=== PATIENT | female | born 1995 | race Two or more races ===

== ENCOUNTER 2024-05-15 00:42 | Emergency (ER) | payer MEDICAID, SELFPAY ==
[2024-05-15 00:43] VITALS: BMI 30.2
[2024-05-15 01:04] VITALS: BP 117/78; PULSE 79; RESP 16; TEMP 37.1; O2SAT 99
--- NOTE | 2024-05-15 01:19 | PD.EDRME ---
Rapid Medical Screening Exam RME Arrival date/time: 05/15/24 00:42 28-year-old female reports with complaints of pelvic pressure pain x 3 days Chief Complaint: Abdominal Pain Time Seen by Provider: 05/15/24 00:49 Vital signs: Vital Signs Temperature 98.8 F 05/15/24 01:04 Pulse Rate 79 05/15/24 01:04 Respiratory Rate 16 05/15/24 01:04 Blood Pressure 117/78 05/15/24 01:04 Pulse Oximetry (%) 99 05/15/24 01:04 Oxygen Delivery Method Room Air 05/15/24 01:04
[2024-05-15 01:46] LABS: Collection Type, Urine Clean Catch
[2024-05-15 01:55] LABS: Bacteria,Urine Rare; Bilirubin,Urine Negative (Negative); Blood,Urine Negative (Negative); Clarity,Urine Clear (Clear/Hazy); Color,Urine Lt-Yellow (Lt Yel-Yel); Culture Indicated,Urine Not Indicated; Glucose, Urine Negative (Negative); HCG Qualitative,Urine Positive; Ketones,Urine Negative (Negative); Leukocyte Esterase,Urine Positive (Negative); Nitrite,Urine Negative (Negative); PH,Urine 6.5 (5.0-7.0); Protein,Urine Trace (Neg - Trace); RBC,Urine 2 /hpf (0-3); Specific Gravity,Urine 1.028 (1.001-1.035); Squamous Epithelial Cell,Urine 13 /hpf (0-5); Urobilinogen,Urine Negative mg/dL (0.0-1.0); WBC,Urine 1 /hpf (0-5)
--- NOTE | 2024-05-15 02:01 | XR_ITS ---
Examination: OB Transvaginal ultrasound of the pelvis, complete Technique: Transvaginal sonographic images pelvis performed using vega scale imaging Exam date and time: May 15, 2024 0029 hrs. Indications: Pelvic pain beginning 3 days ago, history ectopic 2020 Findings: Uterus 8.0 x 4.5 x 6.5 cm pole 0.3 cm corresponds to 5 week 6 day gestational age Cardiac motion 83 BPM Right ovary 4.1 x 3.1 x 2.8 cm arterial flow 28 mm cyst Left ovary removed 2020 Impression: Intrauterine gestation corresponding to 5 week 6 day gestational age Cardiac motion 83 BPM, recommend short-term follow-up transvaginal pelvic sonography to document normal cardiac rate.
[2024-05-15 02:28] LABS: Basophils # (Auto) 0.1 Thou/mm3 (0.0-0.2); Basophils % (Auto) 1 % (0-2.5); Eosinophils # (Auto) 0.1 Thou/mm3 (0.0-0.5); Eosinophils % (Auto) 1 % (0-10); Hematocrit 32.9 % (36.0-46.0); Hemoglobin 9.9 g/dL (12.0-16.0); Immature Granulocytes % (Auto) 0 % (0-0); Immature Granulocytes Auto 0.02 Thou/mm3 (0.00-0.00); Lymphocytes # (Auto) 2.1 Thou/mm3 (1.0-4.8); Lymphocytes % (Auto) 22 % (10-50); Mean Corpuscular HGB Conc 30.1 g/dl (31.0-37.0); Mean Corpuscular Hemoglobin 22.6 pg (25.0-35.0); Mean Corpuscular Volume 75 fL (80-100); Monocytes # (Auto) 0.6 Thou/mm3 (0.0-0.8); Monocytes % (Auto) 6 % (0-12); Neutrophils # (Auto) 6.8 Thou/mm3 (1.8-7.7); Neutrophils % (Auto) 70 % (37-80); Nucleated Red Blood Cell % 0 /100 WBC (0); Platelet Count 345 Thou/mm3 (140-440); RDW Standard Deviation 45.7 fL (36.4-46.3); Red Blood Count 4.39 Miln/mm3 (4.00-5.20); White Blood Count 9.7 Thou/mm3 (3.6-11.0)
[2024-05-15 03:20] LABS: Beta HCG,Quantitative 38257 mIU/mL (<5.0)
--- NOTE | 2024-05-15 04:00 | PRELIM_ITS ---
Obstetric ultrasound (transvaginal) with doppler and wave doppler spectral analysis. May 15 24 at 0229 hours Clinical history: Abdominal pain nausea/vomiting for 3 days.Technique: Real-time ul trasound was performed using Duplex scanning including arterial inflow, venous outflow, color and spe ctral Doppler analysis of both ovaries.Comparison: No prior study is available for comparison. Findin gs:There is an intrauterine gestation with a single live fetus of mean gestational age 5 weeks and 6 days (CRL= 0.3 cm). cardiac activity is present at heart rate of 83 beats per minute. The yolk sac measures 0.3 cm.The uterus measures 8.0 x 4.5 x 6.5 cm.The right ovary measures 4.1 x 3.1 x 2.8 cm, right ovarian simple cystic lesion measures 4.1 x 3.1 x 2.8 cm. Normal blood flow in the right ov ponce with normal wave Doppler spectral analysis.The left ovary was not visualized.There is no free flu id in the pelvis.Impression:Intrauterine gestation with a single live fetus of mean gestational age 5 weeks and 6 days. Report Electronically Signed By: Carter Remy 05/15/2024 3:59:43 AM [EST]
--- NOTE | 2024-05-15 04:43 | PD.EDABDPN ---
ED Abdominal Pain RME/HPI General Chief Complaint: Abdominal Pain Stated complaint: ABD PAIN/ N/V X 3DAYS Time seen by provider: 05/15/24 00:49 Arrival date/time: 05/15/24 00:42 Limitations: no limitations RME / HPI RME / HPI narrative: 05/15/24 00:42 28-year-old female reports with complaints of pelvic pressure pain x 3 days ----- Dr. Contreras's Main ED Evaluation: Related Data Home Medications ?Medication ?Instructions ?Recorded ?Confirmed No Known Home Medications 01/02/21 01/02/21 Allergies Allergy/AdvReac Type Severity Reaction Status Date / Time codeine AdvReac Nausea Verified 07/12/23 02:41 Review of Systems Review of Systems Systems Reviewed: All systems reviewed, normal except as documented ED Exam General Limitations: Present no limitations General appearance: Present alert and in no apparent distress Head Head exam: Present atraumatic Eye Eye exam: Present normal appearance, PERRL and EOMI ENT ENT exam: Present normal exam, normal oropharynx and mucous membranes moist Neck Neck exam: Present normal inspection, full ROM and trachea midline Chest Chest inspection: Present normal inspection and symmetric chest wall rise Respiratory Respiratory exam: Present normal lung sounds bilaterally Cardiovascular Cardiovascular exam: Present regular rate, normal rhythm and normal heart sounds Abdominal Exam Abdominal exam: Present soft and normal bowel sounds Extremities Exam Extremities exam: Present normal inspection and full ROM Back Exam Back exam: Present normal inspection and full ROM Neurological Exam Neurological exam: Present alert, oriented X3 and CN II-XII intact Psychiatric Psychiatric exam: Present normal affect and normal mood Skin Skin exam: Present warm, dry, intact and normal color Course Quality Measures none Orders Category Date Time Status US OB transvaginal Stat Exams 05/15/24 02:01 Taken ABO/RH Type Stat Lab 05/15/24 02:05 Completed Beta HCG,Quantitative Stat Lab 05/15/24 02:05 Completed CBC Stat Lab 05/15/24 02:05 Completed HCG Qualitative,Urine Stat Lab 05/15/24 01:40 Completed UA, C/S IF [Urinalysis, C/S if Indicated] Stat Lab 05/15/24 01:40 Completed Vital Signs Vital signs: Vital Signs Temperature 98.8 F 05/15/24 01:04 Pulse Rate 79 05/15/24 01:04 Respiratory Rate 16 05/15/24 01:04 Blood Pressure 117/78 05/15/24 01:04 Pulse Oximetry (%) 99 05/15/24 01:04 Oxygen Delivery Method Room Air 05/15/24 01:04 Pulse ox is 99% on room air, which is normal according to my interpretation. Abdominal Pain MDM Patient data External records reviewed:: [facility] previous records (Per chart review, patient was seen here on 03/24/20 for pelvic pain.) Discharge Plan Prescriptions/Referrals Prescriptions/Med Rec: No Action No Known Home Medications Referrals: Temporary Provider,ED [Primary Care Provider] - In 1 week Patient/Caregiver Discharge Instructions Print Language: Haitian
--- NOTE | 2024-05-15 05:06 | EDNOTE_ITS ---
ED OB Contraction Preg RMI/HPI General Chief complaint: Abdominal Pain Stated complaint: ABD PAIN/ N/V X 3DAYS Time Seen by Provider: 05/15/24 00:49 Arrival date/time: 05/15/24 00:42 28 year old female present to emergency room with c/o of abd pain, nausea and vomiting for 3 days. LOCATION: pelvic region SEVERITY: Symptoms are described as being severe with limitations on activities of daily living QUALITY: Symptoms are described as being cramping CONTEXT: The patient is unable to identify any inciting events DURATION/TIMING: The symptoms started approximately 3 day ago and have been waxing/waning but always present without ever completely resolving. ASSOCIATED SYMPTOMS: The patient is unable to identify any other associated symptoms. MODIFYING FACTORS: The patient is unable to identify any alleviating or aggravating symptoms. PERTINENT ROS: no fevers, no anorexia, no diarrhea, no ripping or tearing sensations, no syncope or presyncopal symptoms, denies trauma, denies genital pain REVIEW OF SYSTEMS: See History of Present Illness - with the exception of those mentioned in the history of present illness, all other systems reviewed and reported as negative GENERAL: In general the patient is awake, interactive, in an emergency department gurney. HEAD/EYES/EARS/NOSE/THROAT: normo-cephalic, atraumatic, mucus membranes are moist, anicteric, palpebral conjunctiva is pink, trachea is midline. CARDIOVASCULAR: regular rate and regular rhythm, no murmurs, heart sounds are not distant, strong pulses in all four extremities that are equal and symmetric bilateral upper and lower extremities, normal capillary refill. CHEST/PULMONARY: normal chest rise and fall, good air movement, clear to auscultation bilaterally, normal inspiratory to expiratory ratios without evidence of respiratory distress. NECK: No midline/Paraspinal tenderness, no step off ROM/Strenght intact No Kernig and bruzinski sign. No trauma ABDOMEN: soft, not tender, no masses appreciated BACK: normal range of motion without pain. NEUROLOGICAL: cranio-facial features are symmetric, moves all four extremities equally without obvious limitations or weakness. EXTREMITY: no tenderness to palpation over the long bones or large joints of the bilateral upper and lower extremities, no joint swelling, no joint erythema, no signs of trauma, no unilateral leg swelling and no peripheral edema. SKIN: warm, dry, well-perfused, no jaundice, no rash, no telangiectasias or petechia. PSYCH: calm, cooperative, no evidence of psychosis or agitation Limitations: no limitations RME / HPI RME / HPI Narrative: 05/15/24 00:42 28-year-old female reports with complaints of pelvic pressure pain x 3 days ----- Dr. Contreras's Main ED Evaluation: Related Data Home Medications ?Medication ?Instructions ?Recorded ?Confirmed No Known Home Medications 01/02/21 01/02/21 Allergies Allergy/AdvReac Type Severity Reaction Status Date / Time codeine AdvReac Nausea Verified 07/12/23 02:41 ED Exam General Limitations: Present no limitations General appearance: Present alert and in no apparent distress Course Course Course Narrative: This patient presents with abd pain for 3 days, DDX includes ectopic, IUP, threatened/inevitable , along with completed . UTI, gastroenteritis, Patient is HDS and without a history of coagulopathy or infectious symptoms. Doubt alternate acute emergent pathology. Plan: CG, +/- basic labs, type and screen, TVUS, reassess Quality Measures none Orders Category Date Time Status US OB transvaginal Stat Exams 05/15/24 02:01 Taken ABO/RH Type Stat Lab 05/15/24 02:05 Completed Beta HCG,Quantitative Stat Lab 05/15/24 02:05 Completed CBC Stat Lab 05/15/24 02:05 Completed HCG Qualitative,Urine Stat Lab 05/15/24 01:40 Completed UA, C/S IF [Urinalysis, C/S if Indicated] Stat Lab 05/15/24 01:40 Completed Reevaluation(s) Reevaluation #1: pt is feeling better Vital Signs Vital signs: Vital Signs Temperature 98.8 F 05/15/24 01:04 Pulse Rate 79 05/15/24 01:04 Respiratory Rate 16 05/15/24 01:04 Blood Pressure 117/78 05/15/24 01:04 Pulse Oximetry (%) 99 05/15/24 01:04 Oxygen Delivery Method Room Air 05/15/24 01:04 OB/Uterine Contractions Patient data External records reviewed:: [facility] previous records Clinical information provided by:: patient Social determinants that could affect healthcare access:: none Patient has the following chronic illnesses:: anemia How is presenting disease/condition affected by chronic disease/condition?: uneffected by Evaluation data The following diagnostics were reviewed and interpreted by me:: lab results and radiology exam(s) Lab and/or radiology exams considered but not ordered:: none Interpretation Summary: us : 5 week 84 hr hck urine no infection cbc: + anemia consisted from previous visits cmp no acute findings Medications / Prescriptions Medications or Prescriptions considered but not ordered:: none Medication administrations:: none Consultations Consultation(s) initiated? (list below): No Diagnosis OB Contractions Differential Diagnosis: other (as stated above in course ) Most likely diagnosis given after review of the tests above:: 1st trimster Admission Indicated Explain why admission is indicated or not indicated:: note indicated Admission Request Was there a request for admission?: No Disposition Plan Disposition Plan: Discharge Discharge Attestation Discharge Attestation: The patient and all family members were given an opportunity to ask questions and understood the discharge instructions. Discharge instructions specifically effects, indications for sooner follow up or return to the emergency department, and the expected course of current diagnosis. Patient condition: Stable Discharge Plan Plan Patient Disposition: HOME (Self Care) Health Concerns: schedule an appointment with OB return to ED if symptoms worsen Prescriptions/Referrals Prescriptions/Med Rec: No Action No Known Home Medications Referrals: Temporary Provider,ED [Primary Care Provider] - In 1 week Problem List Clinical Impression: Patient/Caregiver Discharge Instructions Education Materials: First Trimester Print Language: Mauritanian Stand Alone Forms: [employer] Award Info., Patient Portal Info Letter
[2024-05-15 05:26] VITALS: BP 112/81; PULSE 82; RESP 18; TEMP 36.8; O2SAT 100
== END 2024-05-15 05:27 | disposition home or self-care (01) ==
LOC: SERX 06:14
PROVIDERS: Physician Assistant; Emergency Provider Emergency Medicine; PCP Family Medicine
DX: O26.891 Other specified pregnancy related conditions, first trimester (principal); R10.9 Unspecified abdominal pain
CPT/HCPCS: 36415; 76817; 81001; 81025; 84702; 85025; 86900; 86901; 99284

== ENCOUNTER 2025-02-16 20:29 | Emergency (ER) | payer MEDICAID, SELFPAY ==
[2025-02-16 20:30] VITALS: BMI 29.8
[2025-02-16 20:53] VITALS: BP 109/74; PULSE 103; RESP 18; TEMP 37.4; O2SAT 99
--- NOTE | 2025-02-16 21:08 | XR_ITS ---
Examination: CT abdomen and pelvis without contrast. Coronal 3-D reconstructions. Sagittal 2-D reconstructions. Date and time of exam:February 16, 2025, 10:40 PM Indications: Pelvic abdominal pain beginning 2 weeks ago Comparison: January 14, 2017 CTDI: vol (mGy): 7.97 DLP: (mGycm): 435 Technique: Axial images of the abdomen have been obtained, 3 mm slice thickness Intravenous contrast material has not been administered. Low dose protocols were performed. One or more of the following dose reduction techniques were used; automated exposure control, adjustment of the mA and/or KV according to patient size, use of iterative reconstruction technique. Findings: No focal liver or splenic lesions No gallstones No pancreatic or adrenal mass Hyperdense renal pyramids, no hydronephrosis or ureteral calculi Aorta normal size No bowel obstruction Normal appendix No diverticulitis Retroverted uterus No adnexal mass The osseous structures are intact Impression: Nephrocalcinosis, no hydronephrosis or ureteral calculi Normal appendix No bowel obstruction diverticulitis or free air Given the patient's presentation, recommend pelvic sonography follow-up
[2025-02-16 21:34] LABS: Basophils # (Auto) 0.0 Thou/mm3 (0.0-0.2); Basophils % (Auto) 0 % (0-2.5); Eosinophils # (Auto) 0.0 Thou/mm3 (0.0-0.5); Eosinophils % (Auto) 0 % (0-10); Hematocrit 32.4 % (36.0-46.0); Hemoglobin 9.3 g/dL (12.0-16.0); Immature Granulocytes Auto 0.03 Thou/mm3 (0.00-0.00); Lymphocytes # (Auto) 1.1 Thou/mm3 (1.0-4.8); Lymphocytes % (Auto) 11 % (10-50); Mean Corpuscular HGB Conc 28.7 g/dl (31.0-37.0); Mean Corpuscular Hemoglobin 20.4 pg (25.0-35.0); Mean Corpuscular Volume 71 fL (80-100); Monocytes # (Auto) 0.5 Thou/mm3 (0.0-0.8); Monocytes % (Auto) 5 % (0-12); Neutrophils # (Auto) 7.7 Thou/mm3 (1.8-7.7); Neutrophils % (Auto) 83 % (37-80); Nucleated Red Blood Cell # 0.00 Thou/mm3 (0.00-0.00); Nucleated Red Blood Cell % 0 /100 WBC (0); Platelet Count 369 Thou/mm3 (140-440); RDW Standard Deviation 42.7 fL (36.4-46.3); Red Blood Count 4.57 Miln/mm3 (4.00-5.20); White Blood Count 9.4 Thou/mm3 (3.6-11.0)
[2025-02-16] MEDS: ONDANSETRON ODT 4 MG TABRAP PO (21:34)
[2025-02-16] MEDS: KETOROLAC INJ 60 MG/2 ML VIAL 30 MG IM (21:34)
[2025-02-16 21:53] LABS: Alanine Aminotransferase 12 U/L (10-49); Albumin, Serum 5.2 gm/dL (3.5-5.0); Albumin/Globulin Ratio 1.6 (1.2-2.2); Alkaline Phosphatase 87 U/L (46-116); Amylase 58 U/L (30-118); Anion Gap 9 (7-16); Aspartate Amino Transferase 19 U/L (0-34); BUN/Creatinine Ratio 13 Ratio (12-20); Bilirubin,Total 1.0 mg/dL (0.3-1.2); Blood Urea Nitrogen 8 mg/dL (9-23); Calcium 9.8 mg/dL (8.3-10.6); Calcium (Corrected) 9.8 mg/dL (8.5-10.1); Carbon Dioxide 26.8 mMol/L (20.0-31.0); Chloride 103 mMol/L (98-107); Creatinine (Component) 0.6 mg/dL (0.6-1.3); Estimated Creatinine Clearance 105.3 mL/min (>60); Globulin 3.3 gm/dL (2.3-3.5); Glucose 108 mg/dL (74-106); Osmolality,Calculated 276 (275-295); Potassium 3.9 mMol/L (3.4-5.1); Sodium 139 mMol/L (136-145); Total Protein 8.5 gm/dL (5.7-8.2); eGFR > 60 See Note
[2025-02-16 22:00] LABS: Collection Type, Urine Clean Catch
[2025-02-16 22:10] LABS: HCG Qualitative,Urine Negative
[2025-02-16 22:12] LABS: Bacteria,Urine Rare; Bilirubin,Urine Negative (Negative); Blood,Urine Negative (Negative); Clarity,Urine Clear (Clear/Hazy); Color,Urine Lt-Yellow (Lt Yel-Yel); Glucose, Urine Negative (Negative); Ketones,Urine Negative (Negative); Leukocyte Esterase,Urine Positive (Negative); Nitrite,Urine Negative (Negative); PH,Urine 7.0 (5.0-7.0); Protein,Urine Negative (Neg - Trace); RBC,Urine 2 /hpf (0-3); Specific Gravity,Urine 1.018 (1.001-1.035); Squamous Epithelial Cell,Urine 5 /hpf (0-5); Urobilinogen,Urine Negative mg/dL (0.0-1.0); WBC,Urine 1 /hpf (0-5)
--- NOTE | 2025-02-16 23:32 | PD.EDABDPN ---
ED Abdominal Pain RME/HPI General Chief Complaint: Abdominal Pain Stated complaint: ABD PAIN Time seen by provider: 02/16/25 20:49 Arrival date/time: 02/16/25 20:29 This is a case of 29-year-old female with no medical history came in in the emergency room due to abdominal pain on and off cramping in character associated with nausea vomiting for 3 days persistence of the symptoms this patient decided to sought consult here in the emergency room Limitations: no limitations Related Data Previous Rx's ?Medication ?Instructions ?Recorded metoclopramide HCl 10 mg tablet 10 mg PO Q6H PRN nausea and 05/15/24 (Reglan) vomiting #30 tabs dicyclomine 20 mg tablet 20 mg PO TID #14 tabs 02/16/25 ferrous sulfate 325 mg (65 mg 325 mg PO BID #60 tabs 02/16/25 iron) tablet nitrofurantoin 100 mg PO BID #20 caps 02/16/25 monohydrate/macrocrystals 100 mg capsule (Macrobid) ondansetron 4 mg disintegrating 4 mg PO Q8H PRN nausea and 02/16/25 tablet vomiting #20 tabs phenazopyridine 200 mg tablet 200 mg PO TID 6 doses #6 tabs 02/16/25 (Pyridium) Allergies Allergy/AdvReac Type Severity Reaction Status Date / Time codeine AdvReac Nausea Verified 02/16/25 20:30 Review of Systems Review of Systems Systems Reviewed: All systems reviewed, normal except as documented Constitutional Constitutional: Reports system reviewed and no additional complaints, except as documented and Reports as per HPI ENT Ears, Nose, Mouth, and Throat: Denies dysphagia and Denies odynophagia Cardiovascular Cardiovascular: Reports system reviewed and no additional complaints, except as documented and Reports as per HPI Respiratory Respiratory: Reports system reviewed and no additional complaints, except as documented and Reports as per HPI Gastrointestinal Gastrointestinal: Reports system reviewed and no additional complaints, except as documented, Reports as per HPI, Reports abdominal pain, Denies belching, Denies bloating, Denies change in bowel habits, Denies change in stool character, Denies coffee ground emesis, Denies constipation, Denies cramping, Denies diarrhea, Denies dyspepsia, Denies dysphagia, Denies early satiety, Denies excessive flatus, Denies fecal incontinence, Denies heartburn, Denies hematemesis, Denies hematochezia, Denies loose stools, Denies melena, Reports nausea, Denies odynophagia, Denies tenesmus and Reports vomiting Genitourinary Genitourinary: Reports system reviewed and no additional complaints, except as documented, Reports as per HPI and Reports dysuria Musculoskeletal Musculoskeletal: Reports system reviewed and no additional complaints, except as documented and Reports as per HPI Neurologic Neurologic: Reports system reviewed and no additional complaints, except as documented and Reports as per HPI Past Medical History Past Medical History NEUROLOGIC: Negative Seizures CARDIAC: Negative Congestive Heart Failure RESPIRATORY: Negative Chronic Obstructive Pulmonary Disease (COPD) GENITOURINARY: Negative Renal Disease REPRODUCTIVE: Positive Previous Pregnancies ENDOCRINE: Negative Diabetes Mellitus Type 1 or Diabetes Mellitus Type 2 OTHER HISTORY: Negative Blood Transfusions, Blood Transfusion Reaction or Anesthesia Reactions Surgical History SURGICAL: Positive Section (X3) Social History SMOKING STATUS: Never smoker ED Exam General Limitations: Present no limitations General appearance: Present alert, in no apparent distress and other (Patient is awake alert oriented not in distress nontoxic looking well-hydrated well-nourished) Head Head exam: Present atraumatic, normocephalic and normal inspection Eye Eye exam: Present normal appearance, PERRL and EOMI ENT ENT exam: Present normal exam, normal oropharynx and mucous membranes moist; Absent mucous membranes dry Neck Neck exam: Present normal inspection, full ROM and trachea midline; Absent tenderness, meningismus, lymphadenopathy or thyromegaly Chest Chest inspection: Present normal inspection and symmetric chest wall rise; Absent tenderness Respiratory Respiratory exam: Present normal lung sounds bilaterally; Absent respiratory distress, wheezes, stridor, accessory muscle use or prolonged expiratory phase Cardiovascular Cardiovascular exam: Present regular rate, normal rhythm and normal heart sounds; Absent bradycardia, tachycardia, irregular rhythm, systolic murmur or diastolic murmur Abdominal Exam Abdominal exam: Present soft, tenderness (Mild tenderness periumbilical area no guarding no rebound no rigidity negative psoas negative straight or negative Rovsing's negative Naveed's negative Callaway sign negative CVA tenderness no bladder distention or tenderness) and normal bowel sounds; Absent distention, diminished bowel sounds, hyperactive bowel sounds, hypoactive bowel sounds or organomegaly Extremities Exam Extremities exam: Present normal inspection and full ROM Back Exam Back exam: Present normal inspection and full ROM; Absent tenderness, CVA tenderness (R), CVA tenderness (L), muscle spasm, paraspinal tenderness, vertebral tenderness, sciatic notch tenderness (R), sciatic notch tenderness (L), straight leg raise (R) or straight leg raise (L) Neurological Exam Neurological exam: Present alert, oriented X3, CN II-XII intact, normal gait and reflexes normal; Absent motor sensory deficit Psychiatric Psychiatric exam: Present normal affect and normal mood Skin Skin exam: Present warm, dry, intact, normal color and other (Excellent skin turgor) Course Quality Measures none Orders Category Date Time Status CT abdomen pelvis wo con Stat Exams 02/16/25 21:08 Completed Amylase Stat Lab 02/16/25 21:20 Completed CBC Stat Lab 02/16/25 21:20 Completed Comprehensive Metabolic Panel Stat Lab 02/16/25 21:20 Completed HCG Qualitative,Urine Stat Lab 02/16/25 21:46 Completed Urinalysis Stat Lab 02/16/25 21:46 Completed Ketorolac Inj [Toradol Inj] Med 02/16/25 21:08 Discontinued 30 mg IM X1 ONE Ondansetron Odt [Zofran Odt] Med 02/16/25 21:08 Discontinued 4 mg PO X1 ONE Phenazopyridine HCl [Pyridium] Med 02/16/25 23:37 Once 200 mg PO X1 ONE Vital Signs Vital signs: Vital Signs Temperature 99.3 F 02/16/25 20:53 Pulse Rate 103 H 02/16/25 20:53 Respiratory Rate 18 02/16/25 20:53 Blood Pressure 109/74 02/16/25 20:53 Pulse Oximetry (%) 99 02/16/25 20:53 Oxygen Delivery Method Room Air 02/16/25 20:53 Oxygen saturation is 99% in room air normal Abdominal Pain MDM MDM Narrative MDM Narrative:: This is a case of 29-year-old female with no medical history came in in the emergency room due to abdominal pain on and off cramping in character associated with nausea vomiting for 3 days persistence of the symptoms this patient decided to sought consult here in the emergency room physical examination patient is awake alert oriented not in distress nontoxic looking well-hydrated well-nourished excellent skin turgor abdominal exam is benign nonsurgical no guarding no rebound no rigidity mild tenderness on the periumbilical area negative psoas negative straight and negative Rovsing's negative McBurney's negative IV sign negative CVA tenderness bladder is not distended not tender the rest of the physical examination neurological exam is normal and unremarkable blood test showed no leukocytosis patient have anemia patient hemoglobin is 9.3 hematocrit is 32.4 patient was discharged with iron ferrous sulfate 3251 tablet twice a day for 30 days and she was advised to follow-up with wastewater design engineer for further evaluation and treatment kidney and liver function is normal no electrolyte imbalance amylase is normal patient urinalysis showed WBC and urine suggestive of urinary tract infection thus patient was discharged with Macrobid for urinary tract infection CT scan were unremarkable except nephrocalcinosis and she was advised to follow-up with PCP to be referred to rehab department manager for further evaluation and treatment of nephrocalcinosis at this point patient will be discharged home in stable condition after giving Toradol and Zofran patient condition markedly improved patient will follow-up with PCP in 2 days for reevaluation and for any worsening symptoms or any or any emergent concern return precaution in the emergency room was advised Patient was discharged with comfortable condition walking with stable gait. Patient verbalized no further complains explained diagnosis and answered patient question. Patient is comfortable with the proposed management plan including the need to follow up with his/her primary care physician and any specialist if applicable Discussed patient for any urgent condition or worsening sx, He/She needed to go to emergency room immediately or call 911. Patient acknowledge the responsibility to follow up as instructed and to monitor her/his symptoms. For any persistence of the symptoms for more than 3-5 days return precaution advised. Discussed the result of the test and was given printed discharge instruction Patient data External records reviewed:: [facility] previous records Clinical information provided by:: patient Social determinants that could affect healthcare access:: none Patient has the following chronic illnesses:: None How is presenting disease/condition affected by chronic disease/condition?: no chronic disease Evaluation data The following diagnostics were reviewed and interpreted by me:: lab results and radiology exam(s) Lab and/or radiology exams considered but not ordered:: Reviewed Interpretation Summary: None Medications / Prescriptions Medications or Prescriptions considered but not ordered:: Given Medication administrations:: Medication Administration History Phenazopyridine HCl (Phenazopyridine Hcl 100 Mg Tablet) 200 mg PO X1 ONE Stop: 02/16/25 23:38 Discontinued Medications Ketorolac Tromethamine (Ketorolac Inj 60 Mg/2 Ml Vial) 30 mg IM X1 ONE Stop: 02/16/25 21:09 Last Admin: 02/16/25 21:34 Dose: 30 mg Documented By: CHAVO Ondansetron HCl (Ondansetron Odt 4 Mg Tabrap) 4 mg PO X1 ONE; Protocol Stop: 02/16/25 21:09 Last Admin: 02/16/25 21:34 Dose: 4 mg Documented By: CHAVO Given Consultations Consultation(s) initiated? (list below): No Diagnosis Differential diagnosis abdominal pain: abdominal pain, acute appendicitis, calculus of kidney, constipation, diverticulitis, gastroenteritis and other (Urinary tract infection) Most likely diagnosis given after review of the tests above:: Urinary tract infection Admission Indicated Admission indicated?: not indicated Explain why admission is indicated or not indicated:: Not indicated Admission Request Was there a request for admission?: No Disposition Plan Disposition Plan: Discharge Discharge Attestation Discharge Attestation: The patient and all family members were given an opportunity to ask questions and understood the discharge instructions. Discharge instructions specifically effects, indications for sooner follow up or return to the emergency department, and the expected course of current diagnosis. Patient condition: Stable Discharge Plan Plan Patient Disposition: HOME (Self Care) Patient condition on transfer: Stable Prescriptions/Referrals Prescriptions/Med Rec: New dicyclomine 20 mg tablet 20 mg PO TID Qty: 14 0RF ondansetron 4 mg tablet,disintegrating 4 mg PO Q8H PRN (Reason: nausea and vomiting) Qty: 20 0RF nitrofurantoin monohyd/m-cryst [Macrobid] 100 mg capsule 100 mg PO BID Qty: 20 0RF Rx Instructions: must administer with a meal/food ferrous sulfate 325 mg (65 mg iron) tablet 325 mg PO BID Qty: 60 0RF phenazopyridine [Pyridium] 200 mg tablet 200 mg PO TID 0 Days Qty: 6 0RF No Action metoclopramide HCl [Reglan] 10 mg tablet 10 mg PO Q6H PRN (Reason: nausea and vomiting) Qty: 30 0RF Referrals: Aldo Wells MD [Primary Care Provider, Family Practice] - In 1 week Problem List Clinical Impression: Abdominal pain, Urinary tract infection, Nephrocalcinosis, Anemia Patient/Caregiver Discharge Instructions Education Materials: Abdominal Pain, Anemia, Anatomy of the Female Urinary Tract, Urinary Tract Infections in Women Additional Instructions: Follow-up with your primary care physician in 2 days for reevaluation and to be referred to rehab department manager for further evaluation and treatment of nephrocalcinosis and wastewater design engineer for anemia recurrence persistent worsening symptoms or any emergent concern call 911 or go to the nearest emergency room take your medication as directed finish the course of antibiotic keep hydrated Print Language: Latvian Stand Alone Forms: [employer] Award Info., Patient Portal Info Letter PA/[employer] OPERATOR Supervising Physician PA/[employer] OPERATOR Supervising Physician: Dr. Lee
[2025-02-16] MEDS: PHENAZOPYRIDINE HCL 100 MG TABLET 200 MG PO (23:42)
== END 2025-02-16 23:44 | disposition home or self-care (01) ==
PROVIDERS: Nurse Practitioner Family; Emergency Provider Family Medicine; PCP Family Medicine
DX: N39.0 Urinary tract infection, site not specified (principal); E83.59 Other disorders of calcium metabolism; N29 Other disorders of kidney and ureter in diseases classified elsewhere; D64.9 Anemia, unspecified; Z88.5 Allergy status to narcotic agent
CPT/HCPCS: 36415; 74176; 80053; 81001; 81025; 82150; 85025; 96372; 99283; J1885; Q0162; A9270